=== PATIENT | male | born 1975 | race Caucasian/White ===

== ENCOUNTER 2022-08-08 15:14 | Emergency (ER) | payer BC, SELFPAY ==
--- NOTE | ~2022-08-08 | XR_ITS ---
EXAM: XR finger 1st LT min 2V DATE: 08/08/2022 18:48 HISTORY: post reduction Lt thumb . COMPARISON: Same date, 5:46 PM. FINDINGS: Normal mineralization. No fracture or dislocation. No lytic or blastic lesion. Joint space s are maintained. No erosion or periosteal change. Soft tissues within normal limits. IMPRESSION: Successful interval reduction. No acute osseous finding. Reviewed, dictated and finalized at location K.
--- NOTE | ~2022-08-08 | XR_ITS ---
EXAM: XR finger 1st LT min 2V DATE: 08/08/2022 17:52 HISTORY: Lt thumb injury when trying to catch dog this P.M. . COMPARISON: None available. FINDINGS: Normal mineralization. No fracture. Posterior dislocation of the left first distal phalanx . No lytic or blastic lesion. Joint spaces are maintained. No erosion or periosteal change. Soft tiss ues within normal limits. IMPRESSION: Posterior dislocation of the left first distal phalanx. Reviewed, dictated and finalized at location K.
[2022-08-08 15:17] VITALS: BP 195/115; PULSE 78; RESP 18; TEMP 37.1; O2SAT 100
--- NOTE | 2022-08-08 17:54 | ED.GENADULT ---
HPI - General Adult General Chief complaint: Wound/Laceration Stated complaint: smashed left thumb Time Seen by Provider: 08/08/22 17:46 Source: patient Mode of arrival: ambulatory Limitations: no limitations History of Present Illness HPI narrative: Presents complaints of left thumb pain that started after accidentally hitting it against a wall 3 hours prior to arrival. States unable to move the distal phalanx of thumb. Denies other injuries or complaints at this time. Obvious deformity noted to distal phalanx of left thumb. Related Data Home Medications Medication Instructions Recorded Confirmed No Home Medications 01/31/21 01/31/21 Allergies Allergy/AdvReac Type Severity Reaction Status Date / Time No Known Allergies Allergy Verified 08/08/22 17:52 Review of Systems Review of Systems: CONSTITUTIONAL: Denies fever, chills, or sweats. EYES: Denies visual changes, redness, or discharge. ENT: Denies rhinorrhea, congestion, sore throat, or otalgia. CARDIOVASCULAR: Denies chest pain, palpitations, or edema. RESPIRATORY: Denies cough or dyspnea. GASTROINTESTINAL: Denies abdominal pain, nausea, vomiting, or diarrhea. GENITOURINARY: Denies dysuria or hematuria. SKIN: Denies rash or itching. MUSCULOSKELETAL: Left distal thumb pain. Denies back pain, joint pain, or myalgia. NEUROLOGIC: Denies headache, numbness, or weakness. PSYCHIATRIC: Denies anxiety or depression. [facility] Past Medical History Medical History Intermittent palpitations Surgical History Surgical History Hx of [facility] Family History Family History Grandparent Heart disease Mother Heart disease Diabetes mellitus Afib Father Cancer Social History Social History Smoking status: Never smoker Alcohol intake: current Alcohol use details: socially Exam Narrative: GENERAL: Well-appearing, well-nourished, and in no acute distress. HEAD: Normocephalic, atraumatic. EYES: PERRLA and EOMI. ENT: Nares clear, no rhinorrhea or epistaxis. Mucous membranes moist. NECK: Supple. CHEST: Clear to auscultation. No respiratory distress. HEART: Regular rate and rhythm. No murmur heard. Normal peripheral pulses. ABDOMEN: Soft, nontender, nondistended, normal active bowel sounds. EXTREMITIES: Left distal thumb with obvious deformity. Unable to move. Sensation is intact. No swelling or bruising noted at this time. No edema. SKIN: Warm, dry, no rash. NEURO: No focal deficits. Alert and oriented x3. PSYCH: Normal mood and affect. Course Vital Signs Vital signs: Vital Signs Temperature 37.1 C 08/08/22 15:17 Pulse Rate 78 08/08/22 15:17 Respiratory Rate 18 08/08/22 15:17 Blood Pressure 195/115 H 08/08/22 15:17 Pulse Oximetry 100 08/08/22 15:17 Oxygen Delivery Room Air 08/08/22 15:17 Temperature 37.1 C 08/08/22 15:17 Pulse Rate 66 08/08/22 19:26 Respiratory Rate 18 08/08/22 19:26 Blood Pressure 137/91 H 08/08/22 19:26 Pulse Oximetry 98 08/08/22 19:26 Oxygen Delivery Room Air 08/08/22 15:17 Procedures Nerve Block Nerve Block 1: Nerve block date: 08/08/22 Nerve block time: 19:00 Local Anesthetic: bupivacaine 0.5% Amount of anesthesia used (mL): 8 Side: left Nerve Blocks: digital Procedure Successful: Yes Patient Tolerated Procedure: well Orthopedic Joint Reduction Joint #1: Orthopedic Joint Reduction Date: 08/08/22 Orthopedic Joint Reduction Time: 19:00 Side: left Joint Reduction Location: finger (Thumb) Analgesia: nerve block Pre-Procedure Neuro Vascular Exam: normal Amount of anesthesic used (mL): 8 Technique used: direct manipulation Post-reduction vascular: no
[2022-08-08 19:26] VITALS: BP 137/91; PULSE 66; RESP 18; O2SAT 98
== END 2022-08-08 19:30 | disposition home or self-care (01) ==
PROVIDERS: Emergency Provider Nurse Practitioner; PCP Family Medicine
DX: S63.125A Dislocation of interphalangeal joint of left thumb, initial encounter (principal); W22.01XA Walked into wall, initial encounter
CPT/HCPCS: 26770; 73140; 99285